=== PATIENT | male | born 1960 | race Caucasian/White ===

== ENCOUNTER → 2016-08-08 | Outpatient (CLI) | payer OTHER ==
[~2016-08-08] MED LIST: ADVIN25050 INH; ALBUAER9 INH; ANDROGEL SC; ASPI-232 PO; ATOR-22 PO; BUSP5TAB59 PO; FERR325T5 PO; FLUO20CA35 PO; FSM70 PO; LISI20TA55 PO; METF-382 PO; MULT-506 PO; NRN300 PO; OMEG10002 PO; PANT1TAB48 PO; ROPI1TAB PO; SENNTAB23 PO; TIOTCAP INH; etodolac PO
--- NOTE | 2016-08-08 09:42 | DIAGNOSTIC IMAGING REPORT ---
CT LUNG SCREENING, LOW DOSE WITH COMPUTER-AIDED DETECTION (CAD) CLINICAL HISTORY: FORMER SMOKER COMPARISON STUDY: Chest radiograph December 05, 2014. CT DOSE: 79.39 mGycm TECHNIQUE: Low-dose helical CT was acquired without intravenous contrast from lung apices to bases and reconstructed at 2.5 mm every 2 mm. CAD was utilized for this study. FINDINGS: No enlarged axillary, mediastinal or hilar lymph nodes are present. The size of the heart is normal. There is moderate coronary artery calcification. Central airways are patent. There are no suspicious pulmonary nodules. There is mild bronchiectasis and mild emphysema within upper lobe predominance. No consolidation is present. There is no pneumothorax or pleural effusion. The bony thorax and upper abdomen are unremarkable on this unenhanced exam. IMPRESSION: 1. No suspicious pulmonary nodules. 2. No acute intrathoracic findings. 3. Mild emphysema and bronchiectasis. Lung RADS 1. No suspicious nodules. Continue annual screening in 12 months. CAD FINDINGS: Overall Lung RADS Category: 1 Lung RADS Management Recommendation: Lung-RADS 1: Continue annual screening in 12 months. Lung RADS Follow Up Date: 2017-08-08 Electronically signed by: Noel Hernandez M.D. 08/08/2016 9:40 AM Dictated Date/Time: 08/08/2016 9:33 AM
== END | disposition home or self-care (01) ==
LOC: C.CTS 09:11
PROVIDERS: ATTEND Physician Assistant
DX: Z12.2 Encounter for screening for malignant neoplasm of respiratory organs (principal); Z87.891 Personal history of nicotine dependence

== ENCOUNTER → 2017-05-26 | Outpatient (CLI) | payer OTHER ==
[~2017-05-26] VITALS: Ht 190.5 cm; Wt 118.4 kg
[~2017-05-26] MED LIST changes: +PANT1TAB3 PO; -PANT1TAB48 PO
[2017-05-26 13:47] VITALS: BP 117/76; PULSE 101; Ht 190.5 cm; Wt 118.4 kg
== END | disposition home or self-care (01) ==
LOC: C.NEUR 13:00
PROVIDERS: ATTEND Internal Medicine Pulmonary Disease
DX: G25.81 Restless legs syndrome (principal); E11.42 Type 2 diabetes mellitus with diabetic polyneuropathy; G47.30 Sleep apnea, unspecified

== ENCOUNTER → 2017-06-08 | Outpatient (CLI) | payer OTHER ==
--- NOTE | 2017-06-09 07:34 | PAP/PSG TECHNICIAN REPORT ---
[facility] Meat Passer Polysomnogram Report Study name: None Report date: 06/09/2017 Study date: 06/08/2017 Referring Physician: Juan Luis Hua M.D. Name: SHAGGY HANSON Interpreting Physician: Juan Luis Hua M.D. Date of : 1960 Meat Passer: Robyn Alfonso RPS. Sex: Male Age: 56 Study Type: PSG Weight: 261 lbs 19 in Height: 56 years, Height 6' 3" Neck Circum: BMI: 32.62 Medications: ACARBOSE 25 MG, ASPIRIN 81 MG, ATORVASTATIN 20 MG, FERROUS SULFATE 325 MG, FLUOXETINE 20 MG, GLIPIZIDE 10 MG, LISINOPRIL-HYDROCHLOROTHIAZIDE 20-25 MG, METFORMIN 500 MG, OXYCODONE-ACTEAMINOPHEN 5-325 MG, PANTOPRAZOLE 40 MG, POTASSIUM CHLORIDE 10 MEQ, ROPINIROLE 1 MG, TESTOSTERONE CYPIONATE 200 MG/ML, TIZANIDINE 2 MG Patient History 56 yr-old male here for a baseline study. He has a history of RLS, pain in neck and legs due to a disc disease, frequent awakenings, and loud snoring if supine. His [place] scale is 2. The test was started on room air. ETCO2 testing is included in this study. Room 7 Parameters Monitored NPSG: E1-M2, E2-M1, Fp1-M2, Fp2-M1, F3-M2, F4-M2, F4-M1, C3-M2, C4-M2, C4-M1, O1-M2, O2-M2, O2-M1, T3-M2, T4-M1, P3-M2, P4-M1, CHIN1, CHIN2, HR, EKG, Legs, PFLOW, SNOR, FLOW, CFLOW, Tidal Volume, THOR, ABDO, SpO2, PLTH, CPRESS, ETCO2 Wave, ETCO2, pH Sleep Architecture Sleep Stages Time at Lights Off 9:04:29 PM STAGES Time (min.) TST (%) Time at Lights On 5:33:59 AM Wake 123.5 -- Total Recording Time (TRT) 509.50 min. N1 50.5 13 Total Sleep Period (TSP) 484.0 min. N2 225.5 58 Total Sleep Time (TST) 386.0min. N3 5.5 1 Awake Time 123.5 min. REM 104.5 27 Wake after Sleep Onset 114.5 min. Sleep Efficiency (SE) 76 % Sleep Onset Latency (JORGE) 9.0 min. Number of Stage 1 Shifts None Awakenings 25 Stage Changes 119 Number of REM periods 5 REM 104.5 27 REM Latency 186.5 min. NREM 281.5 73 Body Position Analysis Supine Right Left Side Prone Vertical Total Sleep Time (min.) 33.0 107.7 275.7 383.46 0.0 0.0 Total Sleep Time (%) 1% 28% 71% 99 0% N/A% Total Sleep Time REM (min.) 0.0 12.0 92.5 None 0.0 0.0 Total Sleep Time NREM (min.) 2.5 95.7 183.2 None 0.0 0.0 Intermittent Wake (min.) 30.5 21.1 71.9 None 0.0 0.0 Total Sleep Period (%) 4% None None None None None Arousals Myoclonus (PLM) * Events Count Index Events Count Index Spontaneous 39 6 Events Awake (PLMW) 104 50.5 Respiratory 3 0.5 Events Asleep w/ Arousal (PLMA) 24 3.7 PLM 21 4 Events Asleep w/o Arousal (PLMS) 243 37.8 Snoring 12 2 Total Asleep 267 41.5 Total 75 12 Total 371 44 Respiratory Analysis * CA OA MA CH H RERA Total Count 0 1 0 0 59 0 60 Index 0.0 0.2 0.0 0 9.2 0 9.3 Mean Duration 0.0 10.3 0.0 0.00 15.5 0.0 15.5 Longest Duration 0.0 10.3 0.0 0.00 0.0 0.0 28.6 Respiratory Event Summary Total Supine ~Supine Right Left Prone REM NREM Apneas Count 1 1 0 0 0 N/A 0 1 Index 0.2 24 0 0.0 0.0 N/A 0 0 Hypopneas (4% Desat) Count 59 1 58 24 34 N/A 39 20 Index 9.2 23.6 9 13.4 7.4 N/A 22.4 4.3 Apneas & All Hypopneas Count 60 2 58 24 34 N/A 39 21 Index 9.3 47 9 13 7 N/A 22.4 4.5 Respiratory Events (Fiberglasser+All Hyp+RERA) Count 60 2 58 24 34 N/A 39 21 Index 9.3 47 9 13.4 7.4 N/A 22.4 4.5 Respiratory Related Arousal Count 3 2 1 1 0 N/A 0 3 Index 0.5 47 0 1 0 N/A 0 1 Snoring Analysis Supine Right Left Prone REM NREM Total Snore duration 3.8 min Snores count 2 115 66 N/A 5 178 183 Snore mean duration 1.2 Sec Snores index 47 64 14 N/A 2.9 37.9 28.4 TST with snoring (%) 1.0% SpO2 Analysis Total REM NREM Awake <50% 0.0 min. 0.0 min. 0.0 min. 0.0 min. 51 - 60% 0.0 min. 0.0 min. 0.0 min. 0.0 min. 61 - 70% 4.1 min. 3.6 min. 0.0 min. 0.5 min. 71 - 80% 33.2 min. 32.6 min. 0.5 min. 0.1 min. 81 - 90% 389.9 min. 45.6 min. 266.0 min. 78.2 min. 91 - 100% 72.0 min. 21.5 min. 15.0 min. 35.5 min. Average 87 83 87 89 Minimum SpO2 64 64 78 67 Desaturation Event Index 24.6 43.6 17.3 26.2 # Desat. Events below 89% 189 74 79 36 Time(%) with Saturation below 89% 67.7 15.3 43.9 8.5 Time(min.) with Saturation below 89% 338.2 76.3 219.2 42.6 Heart Rate Analysis End Tidal CO2 Analysis Min (bpm) Max (bpm) Average (bpm) TSP (mins) % of TSP Awake 65 100 78 Above 55 mmHg 41.1 10.6 NREM 64 97 77 50-55 mmHg 66.4 17.2 REM 64 97 76 45-50 mmHg 47.0 12.2 Overall 64 97 76 40-45 mmHg 24.6 6.4 35-40 mmHg 10.6 2.7 30-35 mmHg 10.7 2.8 Average ETCO2 0.0 Supplemental O2 Values Minimum O2 level: None Value Start Time End Time Meat Passer Comments Mr. Hanson slept in the right and left positions. Cardiac arrhythmias were noted (please refer to the printouts). PLMs were noted. Several episodes of bruxism were noted. Snoring was noted and scored as a 1 on a scale of 0 through 5. (0=no snoring, 5=snoring loud enough to be heard through a closed door or down the [address]dom[address] way) He awoke to use the restroom one time during the night. Mr. Hanson stated that he slept about the same as usual. The final report will be interpreted and signed by a sleep physician. The completed physician report will then be placed in the patient medical record. Therapy (cm H2O) 0 TIB (min.) 509.5 TST (min.) 386.0 Sleep Onset (min.) 9.0 REM Onset From Sleep (min.) 186.5 Sleep Efficiency % 76 Wakefulness (%) 24 Wakefulness (min.) 123.5 NREM 1 (%) 13 NREM 1 (min.) 50.5 NREM 2 (%) 58 NREM 2 (min.) 225.5 NREM 3 (%) 1 NREM 3 (min.) 5.5 REM (%) 27 REM (min.) 104.5 # Arousals 75 Arousal Index 12 # Snore 183 Snore Index 28.4 AHI 9.3 AHI Supine 47 AHI Non-Supine 9 NREM AHI 4.5 REM AHI 22.4 RDI 9.3 # Obstructive Apnea 1 # Central Apnea 0 # Mixed Apnea 0 # Hypopneas 59 RERAs 0 Total Respiratory Events 67 Time Below SpO2 89% (min.) 295.5 Mean NREM SpO2 (%) 87 Mean REM SpO2 (%) 83 Mean Sleep SpO2 (%) 86 Min NREM SpO2 (%) 78 Min REM SpO2 (%) 64 Position Supine (min.) 33.0 Position Non-supine (min.) 383.5 LM Index Sleep 41.5 LM Index NREM 42.0 LM Index REM 40.2 Mean Heart Rate (bpm) 76 Min Heart Rate (bpm) 64
--- NOTE | 2017-06-13 18:32 | POLYSOMNOGRAPH REPORT ---
CLINICAL DATA: A 56-year-old male with history of restless leg syndrome, neck and leg pain due to disc disease, frequent awakenings and loud snoring in supine. He was referred by myself and Dr. Parada for a sleep study. SLEEP ARCHITECTURE: Total sleep period was 484 minutes. Total sleep time was 386 minutes divided between 281.5 minutes of non-REM sleep and 104.5 minutes of REM sleep. Sleep onset latency was 9 minutes. REM latency was delayed at 186.5 minutes. Sleep efficiency was 76%. Wake after sleep onset was 114.5 minutes. Sleep consisted of stage N1 13, stage N2 58%, stage N3 1%, and REM 27%. AROUSAL DATA: Seventy five arousals were recorded for an index of 12 per hour. PERIODIC LIMB MOVEMENT DATA: Significant PLMD was noted. There were 267 limb movements during sleep noted for an index of 41.5 per hour with arousal index of 3.7 per hour. RESPIRATORY DATA: Mild sleep apnea was documented. The AHI was 9.3. There was 1 obstructive apneic episode, 10.3 seconds in duration. There were 59 hypopneic episodes with a mean duration of 15.5 seconds. OXIMETRY DATA: Nocturnal hypoxemia was seen. Oxygen kasia was 64% during REM. Mean saturation was 87%. ECHOCARDIOGRAM: Heart rate ranged from 64-97 beats per minute. PVCs were noted throughout the night. STEEL TURNER'S COMMENTS: The patient slept in the right and left positions. Significant PLMs were noted. Several episodes of bruxism were noted. Snoring was mild, rated 1 on a scale of 1-5. IMPRESSION: 1. Mild sleep apnea/hypopnea with an apnea/hypopnea index of 9.3. 2. Nocturnal hypoxemia with an oxygen kasia of 64% with a mean saturation of 87%. 3. Frequent limb movements during sleep consistent with periodic limb movement disorder. 4. Bruxism. RECOMMENDATIONS: The patient may benefit from a repeat sleep study with CPAP and continuation of treatment for RLS/PLMD. He may need a bite guard from his dentist for bruxism. An oral appliance for VELMA could be considered. CASIE
== END | disposition home or self-care (01) ==
LOC: C.NEUR 20:00
PROVIDERS: ATTEND Internal Medicine Pulmonary Disease
DX: G47.30 Sleep apnea, unspecified (principal); E11.42 Type 2 diabetes mellitus with diabetic polyneuropathy; R53.83 Other fatigue; G25.81 Restless legs syndrome; R06.83 Snoring

== ENCOUNTER → 2017-06-16 | Outpatient (CLI) | payer OTHER ==
[~2017-06-16] VITALS: Ht 190.5 cm; Wt 118.6 kg
[2017-06-16 14:06] VITALS: BP 116/76; PULSE 90; Ht 190.5 cm; Wt 118.6 kg
== END | disposition home or self-care (01) ==
LOC: C.NEUR 12:03
PROVIDERS: ATTEND Internal Medicine Pulmonary Disease
DX: G47.33 Obstructive sleep apnea (adult) (pediatric) (principal); G25.81 Restless legs syndrome; G47.61 Periodic limb movement disorder; E11.42 Type 2 diabetes mellitus with diabetic polyneuropathy

== ENCOUNTER → 2017-06-25 | Outpatient (CLI) | payer OTHER ==
--- NOTE | 2017-06-26 06:25 | PAP/PSG TECHNICIAN REPORT ---
[facility] Security Systems Manager Polysomnogram Report Study name: None Report date: 06/26/2017 Study date: 06/25/2017 Referring Physician: Juan Luis Hua M.D. Name: RUCHI HANSONEL Meghan Interpreting Physician: Juan Luis Hua M.D. Date of : 1960 Security Systems Manager: Robyn Alfonso RPS. Sex: Male Age: 56 Study Type: PSG PAP Weight: 261 lbs 19 in Height: 56 years, Height 6' 3" Neck Circum: BMI: 32.62 Medications: ACARBOSE 25 MG, ASPIRIN 81 MG, ATORVASTATIN 20 MG, FERROUS SULFATE 325 MG, FLUOXETINE 20 MG, GLIPIZIDE 10 MG, LISINOPRIL-HYDROCHLOROTHIAZIDE 20-25 MG, METFORMIN 500 MG, OXYCODONE-ACTEAMINOPHEN 5-325 MG, PANTOPRAZOLE 40 MG, POTASSIUM CHLORIDE 10 MEQ, ROPINIROLE 1 MG, TESTOSTERONE CYPIONATE 200 MG/ML, TIZANIDINE 4 MG Patient History 56 yr-old male here for a new CPAP treatment study. He was found to be positive for VELMA with an AHI of 9.3. His diagnostic study was on 06/08/17. He chose a Quattro Air full face mask size large from [employer]. The test was started on room air and 4 CMH2O. ETCO2 testing was not utilized during this study. Room 7 Parameters Monitored NPSG: E1-M2, E2-M1, Fp1-M2, Fp2-M1, F3-M2, F4-M2, F4-M1, C3-M2, C4-M2, C4-M1, O1-M2, O2-M2, O2-M1, T3-M2, T4-M1, P3-M2, P4-M1, CHIN1, CHIN2, HR, EKG, Legs, PFLOW, SNOR, FLOW, CFLOW, Tidal Volume, THOR, ABDO, SpO2, PLTH, CPRESS, ETCO2 Wave, ETCO2, pH Sleep Architecture Sleep Stages Time at Lights Off 9:41:35 PM STAGES Time (min.) TST (%) Time at Lights On 5:36:35 AM Wake 66.5 -- Total Recording Time (TRT) 475.00 min. N1 20.5 5 Total Sleep Period (TSP) 444.5 min. N2 276.5 68 Total Sleep Time (TST) 408.5min. N3 3.5 1 Awake Time 66.5 min. REM 108.0 26 Wake after Sleep Onset 59.0 min. Sleep Efficiency (SE) 86 % Sleep Onset Latency (JORGE) 7.5 min. Number of Stage 1 Shifts None Awakenings 16 Stage Changes 69 Number of REM periods 4 REM 108.0 26 REM Latency 122.5 min. NREM 300.5 74 Body Position Analysis Supine Right Left Side Prone Vertical Total Sleep Time (min.) 105.5 152.3 165.0 317.29 0.0 0.0 Total Sleep Time (%) 22% 37% 40% 78 0% N/A% Total Sleep Time REM (min.) 45.2 62.8 0.0 None 0.0 0.0 Total Sleep Time NREM (min.) 46.0 89.5 165.0 None 0.0 0.0 Intermittent Wake (min.) 14.3 33.5 18.7 None 0.0 0.0 Total Sleep Period (%) 24% None None None None None Arousals Myoclonus (PLM) * Events Count Index Events Count Index Spontaneous 29 4 Events Awake (PLMW) 81 73.1 Respiratory 5 0.7 Events Asleep w/ Arousal (PLMA) 11 1.6 PLM 10 2 Events Asleep w/o Arousal (PLMS) 134 19.7 Snoring 10 1 Total Asleep 145 21.3 Total 53 8 Total 226 29 Respiratory Analysis * CA OA MA CH H RERA Total Count 1 0 0 0 69 1 70 Index 0.1 0.0 0.0 0 10.1 0 10.4 Mean Duration 13.0 0.0 0.0 0.00 17.7 18.0 17.7 Longest Duration 13.0 0.0 0.0 0.00 0.0 18.0 33.9 Respiratory Event Summary Total Supine ~Supine Right Left Prone REM NREM Apneas Count 1 0 1 1 0 N/A 1 0 Index 0.1 0 0 0.4 0.0 N/A 1 0 Hypopneas (4% Desat) Count 69 9 60 57 3 N/A 47 22 Index 10.1 5.9 11 22.5 1.1 N/A 26.1 4.4 Apneas & All Hypopneas Count 70 9 61 58 3 N/A 48 22 Index 10.3 6 12 23 1 N/A 26.7 4.4 Respiratory Events (Diesel Technician+All Hyp+RERA) Count 70 10 61 58 3 N/A 48 22 Index 10.4 7 12 22.9 1.1 N/A 27.2 4.4 Respiratory Related Arousal Count 5 10 3 1 2 N/A 1 4 Index 0.7 1 1 0 1 N/A 1 1 Snoring Analysis Supine Right Left Prone REM NREM Total Snore duration 2.2 min Snores count 17 15 38 N/A 2 68 70 Snore mean duration 1.9 Sec Snores index 11 6 14 N/A 1.1 13.6 10.3 TST with snoring (%) 0.5% Desaturation Event Summary: Minimum %SpO2 Event Count Mean/Min/Max Duration(sec.) Desaturation Index % Time In Bed > 90 56 23.4 / 9.3 / 56.8 83.4 8.7 86 - 90 79 23.9 / 5.8 / 56.8 13.8 73.8 81 - 85 42 22.8 / 8.3 / 56.5 50.3 10.8 76 - 80 21 22.4 / 8.5 / 56.5 64.9 4.2 71 - 75 6 16.3 / 8.5 / 28.3 35.8 2.2 66 - 70 0 N/A 0.0 0.4 61 - 65 0 N/A 0.0 0.0 56 - 60 0 N/A 0.0 0.0 51 - 55 0 N/A 0.0 0.0 < 50 0 N/A 0.0 0.0 Total REM NREM Awake <50% 0.0 min. 0.0 min. 0.0 min. 0.0 min. 51 - 60% 0.0 min. 0.0 min. 0.0 min. 0.0 min. 61 - 70% 1.8 min. 1.8 min. 0.0 min. 0.0 min. 71 - 80% 29.5 min. 28.7 min. 0.8 min. 0.0 min. 81 - 90% 393.5 min. 71.2 min. 289.9 min. 32.4 min. 91 - 100% 40.3 min. 6.3 min. 8.7 min. 25.3 min. Average 87 83 88 90 Minimum SpO2 67 67 73 83 Desaturation Event Index 19.7 37.8 10.4 33.4 # Desat. Events below 89% 145 65 50 30 Time(%) with Saturation below 89% 66.0 20.1 42.0 3.9 Time(min.) with Saturation below 89% 307.1 93.7 195.3 18.1 Time (mins) REM (mins) NREM (mins) % of TST SpO2 Below 90% 118 67 N51 87.4 SpO2 Below 88% 46 0 0 47 Heart Rate Analysis Min (bpm) Max (bpm) Average (bpm) Awake 65 102 82 NREM 59 104 78 REM 63 105 81 Overall 59 105 79 Supplemental O2 Values Minimum O2 level: None Value Start Time End Time Security Systems Manager Comments Mr. Hanson slept in the right, left, and supine positions with the head of the bed elevated (as he does at home). Cardiac arrhythmias were noted (please refer to the printouts). PLMs were noted. No bruxism noted. CPAP was initiated at +4 CMH2O and up-titrated to a level of +14 CMH2O, Cflex 3. A Quattro Air full face mask size large from [employer] was used during titration. He did not wake up to use the restroom during the night. Mr. Hanson stated that he slept better than usual. The final report will be interpreted and signed by a sleep physician. The completed physician report will then be placed in the patient medical record. Therapy Event: Therapy (cm H20) 4 6 8 10 11 13 14 Total Time at Pressure (min.) 116.2 16.4 32.1 67.7 121.5 28.5 92.6 TST at Pressure (min.) 105.5 16.0 32.1 64.2 94.0 28.5 68.1 # Periods 1 1 1 1 1 1 1 Sleep Onset (min.) 7.5 0.3 0.0 0.0 0.0 0.0 0.0 REM Onset (min.) N/A 13.8 0.0 0.0 105.2 0.0 0.0 Sleep Efficiency % 90 97 100 94 77 100 73 Wakefulness (%) 9.2 2.1 0.0 5.2 22.6 0.0 26.5 Wakefulness (min.) 10.7 0.3 0.0 3.5 27.5 0.0 24.5 NREM 1 (%) 6.9 6.1 0.0 6.6 4.9 1.8 0.5 NREM 1 (min.) 8.0 1.0 0.0 4.5 6.0 0.5 0.5 NREM 2 (%) 83.1 76.3 0.0 82.5 57.3 22.8 38.3 NREM 2 (min.) 96.5 12.5 0.0 55.8 69.7 6.5 35.5 NREM 3 (%) 0.9 0.0 0.0 0.0 1.6 0.0 0.5 NREM 3 (min.) 1.0 0.0 0.0 0.0 2.0 0.0 0.5 REM (%) 0.0 15.5 100.0 5.7 13.5 75.5 34.1 REM (min.) 0.0 2.5 32.1 3.8 16.4 21.5 31.6 # Arousals 20 6 0 13 6 2 6 Arousal Index 11.4 22.4 0.0 12.2 3.8 4.2 5.3 # Snore 20 2 0 27 4 1 16 Snore Index 11.4 7.5 0.0 25.2 2.6 2.1 14.1 AHI 4.0 33.7 39.2 3.7 12.1 16.8 1.8 AHI Supine N/A N/A N/A 48.0 N/A 14.6 1.8 AHI Non-Supine 4.0 33.7 39.2 1.9 12.1 22.7 N/A NREM AHI 4.0 22.2 N/A 4.0 3.9 8.6 0.0 REM AHI N/A 94.3 39.2 0.0 51.3 19.5 3.8 RDI 4.0 33.7 39.2 3.7 12.1 18.9 1.8 # Obstructive 0 0 0 0 0 0 0 # Central Ap 0 0 0 0 1 0 0 # Mixed 0 0 0 0 0 0 0 # Hypopneas 7 9 21 4 18 8 2 RERAS 0 0 0 0 0 1 0 Total Respiratory Events 7 9 21 4 19 9 2 Time Below SpO2 89.00% (min.) 88.6 14.4 32.1 25.2 79.0 24.4 25.2 Mean NREM SpO2 (%) 87 87 N/A 89 88 88 89 Mean REM SpO2 (%) N/A 76 78 83 82 85 88 Mean Sleep SpO2 (%) 87 85 78 89 87 86 89 Min NREM SpO2 (%) 80 73 N/A 87 81 82 87 Min REM SpO2 (%) N/A 67 67 69 71 80 82 Position Supine (min.) 0.0 0.0 0.0 2.5 0.0 20.6 68.1 Position Non-supine (min.) 105.5 16.0 32.1 61.7 94.0 7.9 0.0 LM Index Sleep 18.2 22.4 44.8 16.8 24.2 33.7 9.7 LM Index NREM 18.2 8.9 N/A 17.9 13.1 17.1 3.3 LM Index REM N/A 94.3 44.8 0.0 76.9 39.0 17.1 Mean Heart Rate (bpm) 79 83 84 78 78 80 74 Min Heart Rate (bpm) 71 69 75 59 71 68 63 CPAP REPORT Therapy Detail Time / Page # Comment CPAP 4 cm H2O Full Face Mask Flex Pressure Relief Humidifier on 9:39:38 PM / pg. 97 CPAP 6 cm H2O Full Face Mask Flex Pressure Relief Humidifier on 11:37:44 PM / pg. 333 INCREASED FOR HYPOPNEAS CPAP 8 cm H2O Full Face Mask Flex Pressure Relief Humidifier on 11:54:08 PM / pg. 366 INCREASED FOR MORE HYPOPNEAS IN REM CPAP 10 cm H2O Full Face Mask Flex Pressure Relief Humidifier on 12:26:14 AM / pg. 430 INCREASED FOR HYPOPNEAS IN REM CPAP 11 cm H2O Full Face Mask Flex Pressure Relief Humidifier on 1:33:55 AM / pg. 565 HYPOPNEAS CPAP 13 cm H2O Full Face Mask Flex Pressure Relief Humidifier on 3:35:28 AM / pg. 808 HYPOPNEAS IN REM AGAIN CPAP 14 cm H2O Full Face Mask Flex Pressure Relief Humidifier on 4:03:59 AM / pg. 865 REM
--- NOTE | 2017-06-26 12:20 | POLYSOMNOGRAPH REPORT ---
CLINICAL DATA: A 56-year-old male with BMI of 32.6 referred by myself and Yasmin Chew for a CPAP study. He had mild sleep apnea with an AHI of 9.3. He does have significant neuropathy and RLS. He used a Quattro Air full face mask, size large from [employer]. SLEEP ARCHITECTURE: Total sleep period was 444.5 minutes. Total sleep time was 408.5 minutes divided between 300.5 minutes of non-REM sleep and 108 minutes of REM sleep. Sleep latency was 7.5 minutes. REM latency was 122.5 minutes. Sleep efficiency was 86%. Wake after sleep onset was 59 minutes. Sleep consisted of stage N1 5%, stage N2 68%, stage N3 1%, and REM 26%. AROUSAL DATA: Fifty three arousals were recorded for an index of 8 per hour. Ten were due to snoring events. Five were due to respiratory events. PERIODIC LIMB MOVEMENT DATA: Mildly elevated limb movements during sleep were noted. There were 145 limb movements during sleep noted for an index of 21.3 per hour with arousal index of 1.6 per hour. RESPIRATORY DATA: The AHI was 10.3. There was 1 central apneic episode 13 seconds in duration. There were 69 hypopneic episodes with mean duration of 17.7 seconds. OXIMETRY DATA: Nocturnal hypoxemia was seen. Oxygen kasia was 67% during REM. Mean saturation was 87%. Time below 88% was 46 minutes. ECHOCARDIOGRAM: Heart rates ranged from 59-105 beats per minute. PVCs were noted. AIRPORT TRAFFIC CONTROLLER'S COMMENTS AND TREATMENT SUMMARY: The patient slept in the right, left, and supine position. CPAP was begun and titrated up to 14 cm of water pressure, C-Flex setting #3. The patient states that he slept better than usual. At this final pressure setting, he slept for 68 minutes with an AHI of 1.8. His hypoxemia corrected with CPAP use. IMPRESSION: Obstructive sleep apnea/hypopnea corrected with CPAP 14 cm of water pressure, C-Flex setting #3, Quattro Air full face mask size large from [employer]. RECOMMENDATIONS: The patient should be started on the above noted treatment regimen and seen back in followup within 90 days to document efficacy and compliance. [facility]
== END | disposition home or self-care (01) ==
LOC: C.NEUR 21:00
PROVIDERS: ATTEND Internal Medicine Pulmonary Disease
DX: G47.33 Obstructive sleep apnea (adult) (pediatric) (principal); G47.61 Periodic limb movement disorder; G25.81 Restless legs syndrome; E11.42 Type 2 diabetes mellitus with diabetic polyneuropathy